=== PATIENT | male | born 1985 | race Hispanic/Latino ===

== ENCOUNTER 2018-09-20 13:21 | Emergency (ER) | payer SELFPAY ==
--- NOTE | 2018-09-20 14:46 | RAD REPORT ---
EXAM DESCRIPTION: Ignacio Romero (2 Views)09/20/2018 2:35 pm CLINICAL HISTORY: Chest pain COMPARISON: none FINDINGS: The lungs appear clear of acute infiltrate. The heart is normal size IMPRESSION: No acute abnormalities displayed
--- NOTE | 2018-09-20 15:17 | EDPHYS ---
Physician Documentation [facility] Name: Benjamin Ramirez Age: 33 yrs Sex: Male : 1985 Arrival Date: 09/20/2018 Time: 13:24 Bed 18 Private MD: ED Physician Joshua Ring HPI: 09/20 15:45 This 33 yrs old Male presents to ER via Wheelchair with complaints of Numbness snw Of Arm, Chest Pain, Breathing Difficulty. 15:45 Onset: The symptoms/episode began/occurred 6 month(s) ago. Associated signs and snw symptoms: Pertinent positives: sore throat, burning up throat, occasional vomiting,. Modifying factors: The patient symptoms are alleviated by nothing, the patient symptoms are aggravated by. The patient has experienced similar episodes in the past. It is unknown whether or not the patient has recently seen a physician. taking nexium without resolution x 3 months. Historical: - Allergies: 13:41 No Known Allergies; aa5 - Home Meds: 13:41 None [Active]; aa5 - PMHx: 13:41 None; aa5 - PSHx: 13:41 None; aa5 - Immunization history:: Adult Immunizations unknown. - Social history:: Smoking status: Patient/guardian denies using tobacco. - Ebola Screening: : No symptoms or risks identified at this time. ROS: 15:43 Constitutional: Negative for fever, chills, and weight loss, Eyes: Negative for injury, snw pain, redness, and discharge, Neck: Negative for injury, pain, and swelling, Respiratory: Negative for shortness of breath, cough, wheezing, and pleuritic chest pain, Abdomen/GI: Negative for abdominal pain, nausea, vomiting, diarrhea, and constipation, Back: Negative for injury and pain, : Negative for injury, bleeding, discharge, and swelling, MS/Extremity: Negative for injury and deformity, Skin: Negative for injury, rash, and discoloration, Neuro: Negative for headache, weakness, numbness, tingling, and seizure. 15:43 ENT: Positive for burning in throat. 15:43 Cardiovascular: Positive for chest pain, of the chest. Exam: 15:43 Constitutional: This is a well developed, well nourished patient who is awake, alert, snw and in no acute distress. Head/Face: Normocephalic, atraumatic. Eyes: Pupils equal round and reactive to light, extra-ocular motions intact. Lids and lashes normal. Conjunctiva and sclera are non-icteric and not injected. Cornea within normal limits. Periorbital areas with no swelling, redness, or edema. ENT: Nares patent. No nasal discharge, no septal abnormalities noted. Tympanic membranes are normal and external auditory canals are clear. Oropharynx with no redness, swelling, or masses, exudates, or evidence of obstruction, uvula midline. Mucous membranes moist. Neck: Trachea midline, no thyromegaly or masses palpated, and no cervical lymphadenopathy. Supple, full range of motion without nuchal rigidity, or vertebral point tenderness. No Meningismus. Chest/axilla: Normal chest wall appearance and motion. Nontender with no deformity. No lesions are appreciated. Cardiovascular: Regular rate and rhythm with a normal S1 and S2. No gallops, murmurs, or rubs. Normal PMI, no JVD. No pulse deficits. Respiratory: Lungs have equal breath sounds bilaterally, clear to auscultation and percussion. No rales, rhonchi or wheezes noted. No increased work of breathing, no retractions or nasal flaring. Abdomen/GI: Soft, non-tender, with normal bowel sounds. No distension or tympany. No guarding or rebound. No evidence of tenderness throughout. Back: No spinal tenderness. No costovertebral tenderness. Full range of motion. Skin: Warm, dry with normal turgor. Normal color with no rashes, no lesions, and no evidence of cellulitis. MS/ Extremity: Pulses equal, no cyanosis. Neurovascular intact. Full, normal range of motion. Neuro: Awake and alert, GCS 15, oriented to person, place, time, and situation. Cranial nerves II-XII grossly intact. Motor strength 5/5 in all extremities. Sensory grossly intact. Cerebellar exam normal. Normal gait. Psych: Awake, alert, with orientation to person, place and time. Behavior, mood, and affect are within normal limits. Vital Signs: 13:41 BP 125 / 83; Pulse 85; Resp 16 S; Temp 99.5(O); Pulse Ox 98% on R/A; Weight 85.73 kg aa5 (R); Height 5 ft. 7 in. (170.18 cm) (R); Pain 8/10; 14:48 BP 116 / 75; Pulse 75; Resp 14; Pulse Ox 97% ; bp 15:22 BP 120 / 76; Pulse 71; Resp 14; Pulse Ox 99% ; bp 13:41 Body Mass Index 29.60 (85.73 kg, 170.18 cm) aa5 MDM: 14:05 Patient medically screened. jeremy 15:45 Data reviewed: vital signs, nurses notes. Data interpreted: Pulse oximetry: on room air snw is 99 %. Interpretation: normal. Counseling: I had a detailed discussion with the patient and/or guardian regarding: the historical points, exam findings, and any diagnostic results supporting the discharge/admit diagnosis, radiology results, the need for outpatient follow up, to return to the emergency department if symptoms worsen or persist or if there are any questions or concerns that arise at home. Special discussion: Based on the history and exam findings, there is no indication for further emergent testing or inpatient evaluation. I discussed with the patient/guardian the need to see the renderer for further evaluation of the symptoms. I discussed with the patient/guardian the need to see the primary care provider for further evaluation of the symptoms. 09/20 14:02 Order name: Chest Pa And Lat (2 Views) XRAY; Complete Time: 14:48 snw 09/20 14:02 Order name: EKG; Complete Time: 14:03 snw 09/20 14:02 Order name: EKG - Nurse/Tech; Complete Time: 14:08 snw Administered Medications: No medications were administered Disposition: 17:57 Co-signature as Attending Physician, Joshua Ring MD I agree with the assessment and [facility] plan of care. Disposition: 09/20/18 15:17 Discharged to Home. Impression: Gastro-esophageal reflux disease. - Condition is Stable. - Discharge Instructions: Gastroesophageal Reflux Disease, Adult, Diet for Lactose Intolerance, Adult. - Prescriptions for Carafate 1 gram Oral Tablet - take 1 tablet by ORAL route 4 times per day take on an empty stomach, beginning on waking and last dose at bedtime; 100 tablet. - Medication Reconciliation Form, Thank You Letter, Antibiotic Education, Prescription Opioid Use form. - Follow up: Private Physician; When: 2 - 3 days; Reason: Recheck today's complaints, Continuance of care, Re-evaluation by your physician. Follow up: Emergency Department; When: As needed; Reason: Worsening of condition. Follow up: Andrea Andrews MD; When: 1 week; Reason: Recheck today's complaints, Continuance of care. Signatures: Dispatcher [employer] EDJoshua Fernandes MD MD cha Therrien, Shelly, DOG BEAUTICIAN-C DOG BEAUTICIAN-Csnw Luly Mccann, RN RN aa5 Raul Sampson RN RN bp Corrections: (The following items were deleted from the chart) 15:45 15:17 09/20/2018 15:17 Discharged to Home. Impression: Gastro-esophageal reflux bp disease. Condition is Stable. Forms are Medication Reconciliation Form, Thank You Letter, Antibiotic Education, Prescription Opioid Use. Follow up: Private Physician; When: 2 - 3 days; Reason: Recheck today's complaints, Continuance of care, Re-evaluation by your physician. Follow up: Emergency Department; When: As needed; Reason: Worsening of condition. Follow up: Andrea Andrews; When: 1 week; Reason: Recheck today's complaints, Continuance of care. snw
--- NOTE | 2018-09-20 15:17 | ER ---
Nurse's Notes [facility] Name: Benjamin Ramirez Age: 33 yrs Sex: Male : 1985 Arrival Date: 09/20/2018 Time: 13:24 Bed 18 Private MD: Diagnosis: Gastro-esophageal reflux disease Presentation: 09/20 13:38 Presenting complaint: Patient states: left-sided chest pain with left arm tingling x 6 aa5 months ago. Pt states "I keep taking Nexium thinking that it's heartburn but it's not". Transition of care: patient was not received from another setting of care. Onset of symptoms was August 2018. Risk Assessment: Do you want to hurt yourself or someone else? Patient reports no desire to harm self or others. Initial Sepsis Screen: Does the patient meet any 2 criteria? No. Patient's initial sepsis screen is negative. Does the patient have a suspected source of infection? No. Patient's initial sepsis screen is negative. Care prior to arrival: None. 13:38 Method Of Arrival: Wheelchair aa5 13:38 Acuity: MARY JANE 3 aa5 Triage Assessment: 13:51 General: Appears in no apparent distress. comfortable, Behavior is calm, cooperative, bp appropriate for age. Pain: Complains of pain in chest. EENT: No deficits noted. Neuro: Level of Consciousness is awake, alert, obeys commands, Oriented to person, place, time, situation, Appropriate for age. Cardiovascular: Reports chest pain. Respiratory: Airway is patent Respiratory effort is even, unlabored, Respiratory pattern is regular, symmetrical. GI: No signs and/or symptoms were reported involving the gastrointestinal system. : No signs and/or symptoms were reported regarding the genitourinary system. Derm: No deficits noted. Musculoskeletal: Circulation, motion, and sensation intact. Range of motion: intact in all extremities. Historical: - Allergies: 13:41 No Known Allergies; aa5 - Home Meds: 13:41 None [Active]; aa5 - PMHx: 13:41 None; aa5 - PSHx: 13:41 None; aa5 - Immunization history:: Adult Immunizations unknown. - Social history:: Smoking status: Patient/guardian denies using tobacco. - Ebola Screening: : No symptoms or risks identified at this time. Screenin:52 Abuse screen: Denies threats or abuse. Denies injuries from another. Nutritional bp screening: No deficits noted. Tuberculosis screening: No symptoms or risk factors identified. Fall Risk None identified. Assessment: 13:52 Reassessment: SEE TRIAGE NOTE. NO ACUTE FINDINGS AT THIS TIME. bp 13:55 Pain: Pain does not radiate. Pain began years ago. bp 14:49 Reassessment: PT RETURNED FROM RAD. ALL CURRENT ORDERS COMPLETED, RESULTS PENDING FOR bp DISPO. 15:22 Reassessment: PT D/C HOME AMBULATORY, DX WITH GERD. bp Vital Signs: 13:41 BP 125 / 83; Pulse 85; Resp 16 S; Temp 99.5(O); Pulse Ox 98% on R/A; Weight 85.73 kg aa5 (R); Height 5 ft. 7 in. (170.18 cm) (R); Pain 8/10; 14:48 BP 116 / 75; Pulse 75; Resp 14; Pulse Ox 97% ; bp 15:22 BP 120 / 76; Pulse 71; Resp 14; Pulse Ox 99% ; bp 13:41 Body Mass Index 29.60 (85.73 kg, 170.18 cm) aa5 ED Course: 13:24 Patient arrived in ED. rg4 13:40 Triage completed. aa5 13:40 Arm band placed on. aa5 13:51 Raul Sampson, RN is Primary Nurse. bp 13:52 Patient has correct armband on for positive identification. Bed in low position. Call bp light in reach. Side rails up X2. Pulse ox on. NIBP on. 13:54 EKG done, by jewelry technician. reviewed by Dimas Nichols MD. at1 14:02 Vanita Morgan FNP-C [facility]. snw 14:02 Joshua Ring MD is Attending Physician. snw 14:24 Patient moved to radiology via wheelchair. jb2 14:32 X-ray completed. Patient tolerated procedure well. jb2 14:32 Chest Pa And Lat (2 Views) XRAY In Process Unspecified. EDMS 14:32 Patient moved back from radiology. jb2 15:16 Andrea Andrews MD is Referral Physician. snw 15:21 No provider procedures requiring assistance completed. Patient did not have IV access bp during this emergency room visit. Patient maintains SpO2 saturation greater than 95% on room air. Administered Medications: No medications were administered Outcome: 15:17 Discharge ordered by MD. hernandez 15:23 Discharged to home ambulatory. bp 15:23 Condition: stable 15:23 Discharge instructions given to patient, Instructed on discharge instructions, follow up and referral plans. medication usage, Demonstrated understanding of instructions, follow-up care, medications, Prescriptions given X 1. 15:45 Patient left the ED. bp Signatures: Dispatcher [employer] EDMS Vanita Morgan, HOTEL OFFICE MANAGER-C HOTEL OFFICE MANAGER-Csnw Bebeto Hensley jb2 Luly Mccann, RN RN aa5 Kika Guerra, social worker masters EKG Tat1 Joanne Dhillon rg4 Raul Sampson, RN RN bp
--- NOTE | 2018-09-20 16:19 | EKG ---
Test Date: 2018-09-20 Test Time: 13:43:09 Chief Engineer Production: YVONNE MEASUREMENT RESULTS: Intervals: Rate: 80 IN: 154 QRSD: 86 QT: 358 QTc: 412 [place]: P: 45 IN: 154 QRS: 80 T: 25 INTERPRETIVE STATEMENTS: Normal sinus rhythm Normal ECG No previous ECG available for comparison Electronically Signed On 09-20-18 16:19:05 CDT by Jonnie Christianson
== END 2018-09-20 15:45 | disposition home or self-care (01) ==
LOC: ER 13:21
DX: K21.9 Gastro-esophageal reflux disease without esophagitis (principal)
CPT/HCPCS: 71046; 93005; 99284